=== PATIENT | female | born 1960 | race Caucasian/White ===

== ENCOUNTER 2019-08-11 07:47 | Day surgery (SDC) | payer MEDICAID ==
[~2019-08-11] VITALS: Ht 162.6 cm; Wt 90.7 kg
[2019-08-11] MEDS ORDERED: GLYCOPYRROLATE 0.2 MG/ML VIAL ONE (11:10)
[2019-08-11] MEDS ORDERED: NEOSTIGMINE METHYLSULFATE 1 MG/ML, 10 ML VIAL ONE (11:10)
[2019-08-11] MEDS ORDERED: ROCURONIUM BROMIDE 10 MG/ML (ZEMURON) ONE (11:10)
[2019-08-11] MEDS ORDERED: MIDAZOLAM HCL 5 MG/ML VIAL (VERSED) IV ONE (11:10)
[2019-08-11] MEDS ORDERED: LR 1,000 ML IV.SOLN IV ONE (11:10)
[2019-08-11] MEDS ORDERED: NS IRRIG SOLN 5000 ML IR ONE (11:10)
[2019-08-11] MEDS ORDERED: SEVOFLURANE 15 MIN GAS INH ONE (11:10)
[2019-08-11] MEDS ORDERED: PROPOFOL 200MG/ 20ML VIAL (DIPRIVAN) IV ONE (11:10)
[2019-08-11] MEDS ORDERED: fentaNYL CITRATE/PF 100 MCG/2 ML AMP ONE (11:10)
[2019-08-11] MEDS ORDERED: ONDANSETRON HCL 4 MG/2 ML VIAL ONE (11:10)
[2019-08-11] MEDS ORDERED: LR 1,000 ML IV SCH (11:14)
[2019-08-11] MEDS ORDERED: METOCLOPRAMIDE HCL 10 MG/2 ML VIAL IVP PRN (11:15)
[2019-08-11] MEDS ORDERED: MORPHINE 4 MG/ML INJ. SYRINGE IVP PRN ×3 (11:15)
[2019-08-11 12:08] VITALS: BP_SYST 132
== END 2019-08-11 14:05 | disposition home or self-care (01) ==
LOC: SDS 07:47 → SMU 07:47 → SDS 14:05
PROVIDERS: ATTEND Obstetrics & Gynecology
DX: N95.0 Postmenopausal bleeding (principal); N84.0 Polyp of corpus uteri; I10 Essential (primary) hypertension; E66.01 Morbid (severe) obesity due to excess calories; G40.909 Epilepsy, unspecified, not intractable, without status epilepticus; M19.90 Unspecified osteoarthritis, unspecified site; E11.40 Type 2 diabetes mellitus with diabetic neuropathy, unspecified; Z88.0 Allergy status to penicillin; Z88.2 Allergy status to sulfonamides; Z87.891 Personal history of nicotine dependence
CPT/HCPCS: 82962; 88305; C1819; J2250; J2405; J2704; J2710; J3010; J3490; J7120